=== PATIENT | male | born 1940 | race Caucasian/White ===

== ENCOUNTER 2017-04-20 11:23 | Day surgery (SDC) | payer MEDICARE, OTHER, BC ==
[~2017-04-20 11:23] MED LIST: Acetaminophen TAB* 325 MG PO PRN; Buffered Lidocaine 0.9% SYRIN* 5 ML/SYR SYRINGE INTRADERM ONE
[2017-04-20] MEDS ORDERED: fentaNYL* 50 MCG/ML 2 ML VIAL (100 MCG VIAL) ONE (11:48)
[2017-04-20] MEDS ORDERED: Midazolam* 1 MG/ML 2 ML VIAL (2 MG) ONE (11:48)
--- NOTE | 2017-04-20 12:54 | OP ---
DATE OF OPERATION/DATE OF DICTATION: 04/20/2017 - [facility] DATE OF : 1940. SURGEON: Dr. Ej Wong. VACUUM FORM OPERATOR: None. ANESTHESIA: Topical with intravenous sedation. PRE-OP DIAGNOSIS: Cataract, left eye. POST-OP DIAGNOSIS: Cataract, left eye. OPERATIVE PROCEDURE: Phacoemulsification and cataract extraction with posterior chamber intraocular lens implant, left eye. COMPLICATIONS: None. BLOOD LOSS: None. DESCRIPTION OF PROCEDURE: The patient was brought to the operating room and received a small amount of intravenous sedation. A drop of Tetracaine was placed in his left eye. He was prepped and draped in the usual sterile fashion for ophthalmic surgery and attention was directed to the left eye where a speculum was placed. A paracentesis was created at the 5 o'clock position and 0.1 cc of 1 percent preservative-free Lidocaine was injected into the anterior chamber followed by DisCoVisc. The eye was digitally stabilized while a 2.75 mm keratome was used to create a triplanar clear corneal incision at the 3 o'clock position. A continuous curvilinear capsulorrhexis was created with a cystotome and Utrata forceps. BSS on a cannula was used to hydrodissect the lens from the capsule. Phacoemulsification was performed in a gvxodx-nve-elaljnh technique to create four fragments which were removed. Residual cortical material was removed with irrigation and aspiration. DisCoVisc was used to inflate the capsular bag and an AUOOTO 20.5 diopter lens was folded and inserted into the capsular bag. DisCoVisc was removed using irrigation and aspiration. BSS on a cannula was used to hydrate the corneal stroma and seal the wound. At the end of the case the pupil was round and the lens was centered. The eye was of normal pressure and the wound was water tight. The speculum was removed and topical Maxitrol ointment was placed on the surface of the eye. The eye was closed, patched and shielded and the patient was sent to the recovery room in stable condition with post operative instructions and follow-up appointment given. [id number] #: [id number] MTDD
[2017-04-20 12:59] VITALS: BP 127/75
[2017-04-20] MEDS ORDERED: Neomycin/Polymy/Dex OPHTH.OIN* 3.5 GM ONE (13:26)
[2017-04-20] MEDS ORDERED: Lidocaine 1% MPF* 2 ML VIAL ONE (13:26)
[2017-04-20] MEDS ORDERED: Tropicamide 1% OPTH.SOL* BTL ONE (13:26)
[2017-04-20] MEDS ORDERED: Buffered Lidocaine 0.9% SYRIN* 5 ML/SYR SYRINGE ONE (13:26)
[2017-04-20] MEDS ORDERED: Phenylephrine 2.5% OPTH.SOL* 2 ML BTL ONE (13:26)
[2017-04-20] MEDS ORDERED: Flurbiprofen 0.03% OPTH.SOL* 2.5 ML BTL ONE (13:26)
[2017-04-20] MEDS ORDERED: Cyclopentolate 1% OPTH.SOL* 2 ML BTL ONE (13:26)
[2017-04-20] MEDS ORDERED: Tetracaine 0.5% OPTH.SOL 4 ML* 1 DROP BTL ONE (13:26)
== END 2017-04-20 12:56 | disposition home or self-care (01) ==
LOC: OREAST 11:23
PROVIDERS: ATTEND Ophthalmology
DX: H25.12 Age-related nuclear cataract, left eye (principal); N18.9 Chronic kidney disease, unspecified; Z85.46 Personal history of malignant neoplasm of prostate; I12.9 Hypertensive chronic kidney disease with stage 1 through stage 4 chronic kidney disease, or unspecified chronic kidney disease
CPT/HCPCS: A9270-GY; J2250; J3010; V2632

== ENCOUNTER 2017-04-27 08:05 | Day surgery (SDC) | payer MEDICARE, OTHER, BC ==
[~2017-04-27 08:05] MED LIST changes: +Buffered Lidocaine 0.9% SYRIN* 5 ML/SYR SYRINGE ONE
[2017-04-27] MEDS ORDERED: Midazolam* 1 MG/ML 2 ML VIAL (2 MG) ONE (08:25)
[2017-04-27] MEDS ORDERED: fentaNYL* 50 MCG/ML 2 ML VIAL (100 MCG VIAL) ONE (08:25)
[2017-04-27 10:03] VITALS: BP 117/72
--- NOTE | 2017-04-27 11:57 | OP ---
DATE OF OPERATION/DATE OF DICTATION: 04/27/2017 - [facility] DATE OF : 1940. SURGEON: Dr. Ej Wong. TEMPERING KILN TENDER: None. ANESTHESIOLOGIST: Pavan Bass MD ANESTHESIA: Topical with intravenous sedation. PRE-OP DIAGNOSIS: Cataract, right eye. POST-OP DIAGNOSIS: Cataract, right eye. OPERATIVE PROCEDURE: Phacoemulsification and cataract extraction with posterior chamber intraocular lens implant, right eye. COMPLICATIONS: None. BLOOD LOSS: None. DESCRIPTION OF PROCEDURE: The patient was brought to the operating room and received a small amount of intravenous sedation. A drop of Tetracaine was placed in his right eye. He was prepped and draped in the usual sterile fashion for ophthalmic surgery and attention was directed to the right eye where a speculum was placed. A paracentesis was created at the 11 o'clock position and 0.1 cc of 1 percent preservative-free Lidocaine was injected into the anterior chamber followed by DisCoVisc. The eye was digitally stabilized while a 2.75 mm keratome was used to create a triplanar clear corneal incision at the 9 o'clock position. A continuous curvilinear capsulorrhexis was created with a cystotome and Utrata forceps. BSS on a cannula was used to hydrodissect the lens from the capsule. Phacoemulsification was performed in a divide-and- conquer technique to create four fragments which were removed. Residual cortical material was removed with irrigation and aspiration. DisCoVisc was used to inflate the capsular bag and an AUOOTO 22.0 diopter lens was folded and inserted into the capsular bag. DisCoVisc was removed using irrigation and aspiration. BSS on a cannula was used to hydrate the corneal stroma and seal the wound. At the end of the case the pupil was round and the lens was centered. The eye was of normal pressure and the wound was water tight. The speculum was removed and topical Maxitrol ointment was placed on the surface of the eye. The eye was closed, patched and shielded and the patient was sent to the recovery room in stable condition with post operative instructions and follow-up appointment given. [id number]/CPS #: [id number] [facility]
[2017-04-27] MEDS ORDERED: Cyclopentolate 1% OPTH.SOL* 2 ML BTL ONE (13:58)
[2017-04-27] MEDS ORDERED: Phenylephrine 2.5% OPTH.SOL* 2 ML BTL ONE (13:59)
[2017-04-27] MEDS ORDERED: Flurbiprofen 0.03% OPTH.SOL* 2.5 ML BTL ONE (13:59)
[2017-04-27] MEDS ORDERED: Lidocaine 1% MPF* 2 ML VIAL ONE (13:59)
[2017-04-27] MEDS ORDERED: Tropicamide 1% OPTH.SOL* BTL ONE (13:59)
[2017-04-27] MEDS ORDERED: Neomycin/Polymy/Dex OPHTH.OIN* 3.5 GM ONE (13:59)
[2017-04-27] MEDS ORDERED: Tetracaine 0.5% OPTH.SOL 4 ML* 1 DROP BTL ONE (13:59)
[2017-04-27] MEDS ORDERED: Buffered Lidocaine 0.9% SYRIN* 5 ML/SYR SYRINGE ONE (13:59)
== END 2017-04-27 10:13 | disposition home or self-care (01) ==
LOC: OREAST 08:05
PROVIDERS: ATTEND Ophthalmology
DX: H25.11 Age-related nuclear cataract, right eye (principal); I10 Essential (primary) hypertension; E78.00 Pure hypercholesterolemia, unspecified
CPT/HCPCS: A9270-GY; J2250; J3010; V2632

== ENCOUNTER 2024-10-31 08:14 | Inpatient (IN) ==
[2024-10-31 09:24] LABS: Hematocrit 41.6 % (38-53); Hemoglobin 14.1 g/dL (13.2-16.3); Mean Corpuscular Hemoglobin 31.8 pg (27-33); Mean Corpuscular Hgb Conc 33.9 g/dL (31-36); Mean Corpuscular Volume 93.9 fL (80-97); Mean Platelet Volume 7.6 fL (7.5-11.2); Platelet Count 357 10^3/uL (150-450); Red Blood Count 4.43 10^6/uL (4.06-5.63); Red Cell Distribution Width 13.9 % (12-17); White Blood Count 15.8 10^3/uL (3.6-10.2)
[2024-10-31 09:46] LABS: Albumin 3.9 g/dL (3.5-5.7); Albumin/Globulin Ratio 1.1 (1-3); C Reactive Protein 129.55 mg/L (<8.01); Calcium 9.5 mg/dL (8.6-10.3); Creatinine, Serum 1.65 mg/dL (0.67-1.17); Globulin 3.6 g/dL (2-4); Potassium 4.7 mmol/L (3.5-5.0); Total Bilirubin 0.8 mg/dL (0.2-1.0); Total Protein 7.5 g/dL (6.4-8.9); eGFR CKD-EPI 41.2 (>60)
[2024-10-31 09:56] LABS: ABS Basophils 0.1 10^3/uL (0.0-0.1); ABS Eosinophils 0.1 10^3/uL (0.0-0.5); ABS Lymphocytes 0.9 10^3/uL (1.0-4.8); ABS Monocytes 1.8 10^3/uL (0.0-1.1); Eosinophil % 0.4 %; Lymphocyte % 5.6 %
[2024-10-31 10:37] LABS: Urine Appearance Turbid; Urine Bilirubin Negative (Negative); Urine Blood 1+ (Negative); Urine Color Light-Yellow; Urine Glucose Negative (Negative); Urine Ketones Negative (Negative); Urine Nitrite 2+ (Negative); Urine Protein Trace (Negative); Urine Specific Gravity 1.012 (1.002-1.030); Urine Urobilinogen Negative (Negative); Urine pH 5.5 (5.0-8.0)
[2024-10-31 10:52] LABS: Urine Bacteria 1+ /HPF (Absent); Urine Red Blood Cell 2+(6-10/hpf) /HPF (0-Trace); Urine White Blood Cell 3+(>20/hpf) /HPF (0-Trace)
[2024-10-31] MEDS: cefTRIAXone 2 gm/50 mL D5W 2 GM/50 ML BAG IV ONE (11:01)
[2024-10-31 11:24] LABS: HIV 4th Generation Nonreactive (Nonreactive)
[2024-10-31] MEDS: Acetaminophen IV 1 GM/100ML 1,000 MG/100 ML BAG IV ONE (12:10)
[2024-10-31 12:11] LABS: INR 1.35 (0.85-1.14)
[2024-10-31] MEDS: Lactated Ringers 1000 ml BAG 1,000 ML IV ONE (14:30)
[2024-10-31] MEDS: fentaNYL 100 mcg/2 ml 50 MCG/ML VIAL ONE (14:56)
[2024-10-31] MEDS: Lactated Ringers 1000 ml BAG 1,000 ML IV SCH (17:28)
[2024-10-31 18:38] LABS: Hematocrit 35.9 % (38-53); Hemoglobin 12.1 g/dL (13.2-16.3)
[2024-11-01 07:35] LABS: Hematocrit 37.5 % (38-53); Mean Corpuscular Hemoglobin 31.3 pg (27-33); Mean Corpuscular Hgb Conc 31.9 g/dL (31-36); Mean Corpuscular Volume 98.2 fL (80-97); Mean Platelet Volume 7.8 fL (7.5-11.2); Platelet Count 199 10^3/uL (150-450); Red Blood Count 3.82 10^6/uL (4.06-5.63); White Blood Count 32.1 10^3/uL (3.6-10.2)
[2024-11-01 07:40] LABS: ALT 41 U/L (7-52); Albumin 2.8 g/dL (3.5-5.7); Alkaline Phosphatase 51 U/L (35-149); Anion Gap 9 mmol/L (2-16); Blood Urea Nitrogen 32 mg/dL (6-24); CO2 Carbon Dioxide 25 mmol/L (22-32); Calcium 8.5 mg/dL (8.6-10.3); Chloride 104 mmol/L (101-111); Creatinine, Serum 1.77 mg/dL (0.67-1.17); Globulin 2.7 g/dL (2-4); Glucose 109 mg/dL (70-100); Sodium 138 mmol/L (135-145); Total Bilirubin 0.5 mg/dL (0.2-1.0); Total Protein 5.5 g/dL (6.4-8.9); eGFR CKD-EPI 37.9 (>60)
[2024-11-01 08:28] LABS: Potassium Redraw 4.7 mmol/L (3.5-5.0)
[2024-11-01] MEDS: cefTRIAXone 1 gm/50 mL D5W 1 GM/50 ML BAG IV SCH (10:03)
[2024-11-01 13:47] LABS: Urine Appearance Turbid; Urine Bilirubin Negative (Negative); Urine Blood 3+ (Negative); Urine Glucose Negative (Negative); Urine Ketones Negative (Negative); Urine Nitrite Negative (Negative); Urine Protein 2+ (>=100 mg/dL) (Negative); Urine Specific Gravity 1.013 (1.002-1.030); Urine Urobilinogen Negative (Negative)
[2024-11-01 13:51] LABS: Urine Bacteria Absent /HPF (Absent); Urine Red Blood Cell 3+(>10/hpf) /HPF (0-Trace); Urine White Blood Cell 3+(>20/hpf) /HPF (0-Trace)
[2024-11-01 14:01] LABS: Urine Color Light-Yellow
[2024-11-01 14:27] LABS: C Reactive Protein 249.49 mg/L (<8.01)
[2024-11-01] MEDS: Calcium Polycarbophil 625mg TB PO SCH (20:23)
[2024-11-02 06:54] LABS: Hematocrit 33.2 % (38-53); Hemoglobin 11.3 g/dL (13.2-16.3); Mean Corpuscular Hemoglobin 31.7 pg (27-33); Mean Corpuscular Hgb Conc 33.9 g/dL (31-36); Mean Corpuscular Volume 93.4 fL (80-97); Mean Platelet Volume 8.1 fL (7.5-11.2); Platelet Count 239 10^3/uL (150-450); Red Blood Count 3.56 10^6/uL (4.06-5.63); Red Cell Distribution Width 14.3 % (12-17); White Blood Count 26.9 10^3/uL (3.6-10.2)
[2024-11-02 07:00] LABS: Albumin 2.7 g/dL (3.5-5.7); C Reactive Protein 259.1 mg/L (<8.01); Calcium 8.6 mg/dL (8.6-10.3); Creatinine, Serum 1.45 mg/dL (0.67-1.17); Globulin 2.6 g/dL (2-4); Potassium 4.1 mmol/L (3.5-5.0); Total Bilirubin 0.4 mg/dL (0.2-1.0); Total Protein 5.3 g/dL (6.4-8.9); eGFR CKD-EPI 48.1 (>60)
[2024-11-02 08:10] LABS: ABS Basophils 0.1 10^3/uL (0.0-0.1); ABS Eosinophils 0.5 10^3/uL (0.0-0.5); ABS Monocytes 1.7 10^3/uL (0.0-1.1); ABS Neutrophils 23.6 10^3/uL (1.5-7.6); Eosinophil % 1.9 %; Lymphocyte % 3.7 %
[2024-11-02] MEDS: Sulfamethox/Trimethoprim DS TAB 800/160 mg PO ONE (09:41)
[2024-11-02] MEDS: Polyethylene Glycol 3350 17 GM PACKET PO SCH (09:44)
[2024-11-02] MEDS: Sulfamethox/Trimethoprim SS TAB 400/80 mg PO SCH (21:37)
[2024-11-03 06:29] LABS: ABS Basophils 0.1 10^3/uL (0.0-0.1); ABS Eosinophils 0.7 10^3/uL (0.0-0.5); ABS Lymphocytes 1.1 10^3/uL (1.0-4.8); ABS Monocytes 1.5 10^3/uL (0.0-1.1); ABS Neutrophils 12.9 10^3/uL (1.5-7.6); Eosinophil % 4.3 %; Hematocrit 36.4 % (38-53); Hemoglobin 12.2 g/dL (13.2-16.3); Lymphocyte % 6.5 %; Mean Corpuscular Hemoglobin 31.7 pg (27-33); Mean Corpuscular Hgb Conc 33.6 g/dL (31-36); Mean Corpuscular Volume 94.1 fL (80-97); Mean Platelet Volume 8.1 fL (7.5-11.2); Platelet Count 254 10^3/uL (150-450); Red Blood Count 3.86 10^6/uL (4.06-5.63); Red Cell Distribution Width 14.4 % (12-17); White Blood Count 16.2 10^3/uL (3.6-10.2)
[2024-11-03 06:30] LABS: C Reactive Protein 140.86 mg/L (<8.01); Calcium 8.6 mg/dL (8.6-10.3); Creatinine, Serum 1.63 mg/dL (0.67-1.17); Potassium 4.2 mmol/L (3.5-5.0); eGFR CKD-EPI 41.8 (>60)
[2024-11-03 09:23] VITALS: BP 127/67
[2024-11-03 16:43] LABS: Anaplasma phagocytophilum Negative (Negative); B. miyamotoi PCR, B Negative (Negative); Babesia divergens/MO-1 Negative (Negative); Babesia ducani Negative (Negative); Ehrlichia chaffeensis Negative (Negative); Ehrlichia ewingii/canis Negative (Negative); Ehrlichia muris eauclairensis Negative (Negative)
== END 2024-11-03 13:35 | disposition home health service (06) | DRG 872 ==
LOC: EDHOLD 08:14 → ED 08:14 → MED 15:20
PROVIDERS: ADMIT Student in an Organized Health Care Education/Training Program; ATTEND Student in an Organized Health Care Education/Training Program